=== PATIENT | female | born 1945 | race Caucasian/White ===

== ENCOUNTER 2017-03-04 00:14 | Inpatient (IN) | payer OTHER ==
[2017-03-04] VITALS (85 sets, daily range): BP systolic 74–153; BP diastolic 44–123
[~2017-03-04] VITALS: Ht 167.6 cm; Wt 67.7 kg
--- NOTE | ~2017-03-04 | HC ---
[facility] [place] [address] CONSULTATION Name: TALON BLAKE Room #: [facility] IN ..#: [id number] Admission: 03/04/17 Attend Phys: Joanne Alcazar Discharge: Date of : 49 Report #: [id number] THIS REPORT FOR: //name// CC: [facility] physician/PCP Joanne Alcazar DATE OF SERVICE: 03/06/2017 INDICATION: Troponin elevation. HISTORY OF PRESENT ILLNESS: This is a 71-year-old female with a history of COPD on home oxygen, presenting with increasing dyspnea. The patient is presently intubated and sedated and the history is obtained from her medical records. It seems that she had increasing shortness of breath for several days prior to her hospitalization. There was a history of cough with phlegm production. There was no apparent history of chest pains, fever or nausea. In the ER, she was in respiratory distress requiring intubation. We are asked to evaluate the patient for a peak troponin elevation of 0.60. The patient does not have a prior history of coronary artery disease. The ECG is abnormal. PAST MEDICAL HISTORY: COPD on home oxygen, tobacco use. MEDICATIONS: Please see the MAR for full listing. ALLERGIES: None. SOCIAL HISTORY: Positive tobacco use. FAMILY HISTORY: Unobtainable. REVIEW OF SYSTEMS: Unobtainable. PHYSICAL EXAMINATION: VITAL SIGNS: Blood pressure 110/60, heart rate is 70 beats per minute. GENERAL APPEARANCE: This is an elderly-appearing female, intubated and sedated. HEENT: Head AND EYES: Normocephalic. Sclerae are anicteric. ENT: ET tube in place. NECK: No JVD. LUNGS: Diminished breath sounds at the bases. CARDIAC: Distant heart sounds, S1, S2 positive. ABDOMEN: Soft, nontender. EXTREMITIES: No cyanosis. Trace edema. ECG reveals sinus rhythm, T-wave inversions in the precordial leads. LABORATORY VALUES: Sodium is 140, creatinine is 0.5. White count 11.1, [facility] [address] [place] [address] CONSULTATION Name: TALON BLAKE Room #: [facility] IN [facility].#: [id number] Admission: 03/04/17 Attend Phys: Joanne Alcazar Discharge: Date of : 49 Report #: [id number] hemoglobin 11.0. Peak troponin is 0.60. ASSESSMENT AND PLAN: 1. Respiratory failure, most likely attributed to chronic obstructive pulmonary disease exacerbation/pneumonia. Continue on vent as per Pulmonary. Check cultures and continue with antibiotics. 2. Troponin elevation, peak level of 0.60. The significance is unclear. Maybe related to oxygen/hypoxia mismatch. We will need an ischemic evaluation once her respiratory status has been stabilized. Continue with aspirin therapy. 3. Abnormal ECG, T-wave inversions in the precordial leads. She will need an echo to assess the LV systolic function. 4. Tobacco use, complete smoking cessation is recommended. <ELECTRONICALLY SIGNED> By: Karan Orosco MD 03/06/17 1411 0819 0905 Karan Orosco MD /nt
--- NOTE | ~2017-03-04 | HC ---
[facility] [place] [address] CONSULTATION Name: TALON BLAKE Room #: 243-P [facility] IN ..#: [id number] Admission: 03/04/17 Attend Phys: Joanne Alcazar Discharge: Date of : 49 Report #: [id number] THIS REPORT FOR: //name// CC: FAM physician/PCP Joanne Alcazar DATE OF SERVICE: 03/04/2017 PRIMARY CARE PHYSICIAN: Dr. Terra Modi. REFERRAL PHYSICIAN: Dr. Alcazar. REASON FOR REFERRAL: Acute respiratory failure. HISTORY OF PRESENT ILLNESS: The patient is a 71-year-old white female who presents to the Emergency Room with acute respiratory distress. She was eventually placed on a ventilator. A pulmonary consultation was requested. The patient has known chronic lung disease. She was previously hospitalized in 07/2014 for chronic obstructive pulmonary disease exacerbation. She is followed longitudinally by Dr. Harjinder Thomas. She is oxygen dependent. She is felt to have severe pulmonary impairment. The patient was doing fairly well until 2 days prior to presentation when she began to feel ill, complained of myalgias, febrile illness, cough productive of yellowish sputum. Chest x-ray shows relatively clear lung pineda. PAST MEDICAL HISTORY: Notable for chronic obstructive pulmonary disease, oxygen dependent; history of tobacco use, past history of myocardial infarction. PAST SURGICAL HISTORY: Status post hysterectomy. ALLERGIES: None to medications. HOME MEDICATIONS: Advair 115/21 mcg 2 puffs twice a day, alprazolam 0.25 mg, nebulized ipratropium, guaifenesin, Xopenex nebulized, Anoro Ellipta. FAMILY HISTORY: Noncontributory. SOCIAL HISTORY: The patient has smoked, but quit several years ago. There is no history of use. REVIEW OF SYSTEMS: Deferred as the patient is intubated. PHYSICAL EXAMINATION: GENERAL: She is sedated. [facility] [address] [place] [address] CONSULTATION Name: TALON BLAKE Room #: 243-P [facility] IN [facility]#: [id number] Admission: 03/04/17 Attend Phys: Joanne Alcazar Discharge: Date of : 49 Report #: [id number] VITAL SIGNS: Temperature is 97.6 degrees Fahrenheit, pulse is 120, respiratory rate is 40, blood pressure is 90/67 mmHg, saturation is 95%. HEENT: Normocephalic, atraumatic. She is orally intubated. NECK: Supple, without lymphadenopathy or thyromegaly. CHEST: Breath sounds are fair with moderate expiratory wheezes. Few scattered crackles are heard in both lung pineda. CARDIOVASCULAR: Normal S1, S2. There are no murmurs or gallop. There is no JVD. There is no carotid bruit. Pulses are 2+/4+ bilaterally. BREASTS: Exam deferred. ABDOMEN: Soft, nontender, no organomegaly or masses felt. GENITOURINARY: Deferred. RECTAL: Deferred. EXTREMITIES: There is no edema, cyanosis or clubbing. LABORATORY DATA: Chest x-ray again shows no obvious infiltrates. ET tube is approximately 2.5 cm above the rebeca. EKG shows T-wave abnormalities, otherwise no acute ST elevations. Lactic acid is 2.2. Electrolytes are normal. Sodium 145, potassium 3.6, chloride 102, CO2 is 35, BUN is 22, creatinine 0.8. WBC 13,500, hemoglobin is 14.6, platelets are normal. No significant bandemia. Troponin is 0.6. Arterial blood gas revealed pH 7.11, pCO2 of 106, pO2 of 286 on FiO2 100%. Followup arterial blood gas is pending. IMPRESSION: 1. Acute on chronic hypercapnic hypoxic respiratory failure in this 71-year-old white female secondary to exacerbation of chronic obstructive pulmonary disease. Possible lower respiratory tract infection should be considered. 2. Chronic obstructive pulmonary disease, severity unknown, oxygen dependent with exacerbation. 3. Elevated troponin, likely due to stress myocardial demand. Follow up EKG. Follow up troponin. May need cardiac evaluation once stable. RECOMMENDATION: We will continue mechanical ventilation. Continue broad spectrum antibiotics, corticosteroids, bronchodilators. DVT and GI prophylaxis will be obtained. I recommend following serial troponins and EKGs. Thank you for this consultation. <ELECTRONICALLY SIGNED> By: Rajeev Childers MD 03/05/17 1600 1415 1655 Rajeev Childers MD /nt
--- NOTE | ~2017-03-04 | EKG ---
[address] [place] [address] ELECTROCARDIOGRAM REPORT Name: TALON BLAKE Room #: 243- ADM IN M.R.#: [id number] Admission: 03/04/17 Attend Phys: Joanne Alcazar Discharge: Date of : 49 Report #: [id number] THIS REPORT FOR: //name// [place] [facility] Test Date: 2017-03-04 Test Time: 14:41:11 Pat Name: TALON BLAKE Department: Room: 243 Gender: F Antisubmarine Weapons Officer: ANSHUL : 1945 Requested By: Rajeev Childers Order Number: [id number] MD: Karan Orosco Measurements Intervals [place] Rate: 72 P: 78 NE: 141 QRS: 26 QRSD: 100 T: -11 QT: 472 QTc: 517 Interpretive Statements Sinus rhythm Abnormal T, consider ischemia, anterior leads Prolonged QT interval Compared to ECG 03/04/2017 01:14:47 No change Electronically Signed On 03-05-2017 9:46:30 STRATEGIC MARKETING MANAGER by Karan Orosco [email or web address] <ELECTRONICALLY SIGNED> By: Karan Orosco MD 03/05/17 0946 1441 1441 Karan Orosco MD /OCTAVIANO
--- NOTE | ~2017-03-04 | 2DMMODE ---
[facility] [address] [place] [address] 2 D/M-MODE ECHOCARDIOGRAM Name: LOUTALON Kar Room #: 243-P [facility] IN ..#: [id number] Admission: 03/04/17 Attend Phys: Joanne Parra Discharge: Date of : 49 Date of Service: 03/07/17 [facility] Report #: [id number] THIS REPORT FOR: //name// APPROVED REPORT Study performed: 03/07/2017 08:24:09 EXAM: Comprehensive 2D, Doppler, and color-flow Echocardiogram Patient Location: ICU Room #: [facility] Status: routine BSA: 1.71 BP: 105/57 mmHg Other Information Study Quality: Technically Difficult Technically limited study due to lung disease, inability to position patient. Indications COPD Non STEMI Dyspnea 2D Dimensions RVDd: 25.38 mm LVEF(%): 58.44 (>50%) IVSd: 11.16 (7-11mm) LVOT Diam: 17.26 (18-24mm) LVDd: 35.07 mm PWd: 9.83 (7-11mm) LVDs: 24.51 (25-40mm) Aortic Root: 32.07 mm IVC: 21.00 mm Gurrola's LVEF: 58.44 % Volumes Left Atrial Volume (Systole) Single Plane 4CH: 20.29 mL Single Plane 2CH: 41.50 mL LA ESV Index: 20.00 mL/m2 Aortic Valve AoV Peak Deven.: 2.46 m/s AO Peak Gr.: 24.25 mmHg LVOT Max P.04 mmHg AO Mean Gr.: 10.08 mmHg LVOT Mean P.60 mmHg AO V2 Mean: 1.42 m/s LVOT Max V: 1.23 m/s AO V2 VTI: 43.61 cm LVOT Mean V: 0.72 m/s [facility] [place] [address] 2 D/M-MODE ECHOCARDIOGRAM Name: TALON BLAKE Room #: 243-P [facility] IN ..#: [id number] Admission: 03/04/17 Attend Phys: Joanne Parra Discharge: Date of : 49 Date of Service: 03/07/17 [facility] Report #: [id number] NIRAJ (VTI): 1.33 cm2 LVOT V1 VTI: 24.79 cm NIRAJ Vmax: 1.17 cm2 SV (LVOT): 57.96 mL Mitral Valve E/A Ratio: 1.7 MV Decel. Time: 255.61 ms MV E Max Deven.: 0.91 m/s MV A Deven.: 0.53 m/s MV PHT: 74.13 ms IVRT: 89.97 ms Pulmonary Valve PV Peak Deven.: 1.07 m/s PV Peak Gr.: 4.60 mmHg Pulmonary Vein P Vein S: 0.70 m/s P Vein A: 0.26 m/s P Vein D: 0.58 m/s P Vein A Dur.: 83.0 msec P Vein S/D Ratio: 1.21 Tricuspid Valve RAP Estimate: 10.00 mmHg Left Ventricle The left ventricle is normal size. There is normal left ventricular wall thickness. The left ventricular systolic function is normal. The left ventricular ejection fraction is within the normal range. LVEF is 60-65%. Transmitral Doppler flow pattern suggests pseudonormalization. Right Ventricle The right ventricle is normal size. The right ventricular systolic function is normal. Atria The left atrium size is normal. The right atrium size is normal. Aortic Valve Aortic valve leaflets are thickened. No aortic regurgitation is present. There is mild valvular aortic stenosis. Maximum pressure gradient of 24 mmHg and mean pressure gradient of 10 mmHg. Mitral Valve The mitral valve is normal in structure. Trace mitral regurgitation. No evidence of mitral valve stenosis. [facility] [address] [place] [address] 2 D/M-MODE ECHOCARDIOGRAM Name: TALON BLAKE Room #: 243-P [facility] IN [facility]#: [id number] Admission: 03/04/17 Attend Phys: Joanne Parra Discharge: Date of : 49 Date of Service: 03/07/17 [facility] Report #: [id number] Tricuspid Valve The tricuspid valve is normal in structure. Trace tricuspid regurgitation. Unable to assess PA pressure. Pulmonic Valve Pulmonic valve is not well visualized. Great Vessels The aortic root is normal in size. IVC measures upper limits of normal. Pericardium There is no pericardial effusion. <Conclusion> The left ventricle is normal size. The left ventricular systolic function is normal. Transmitral Doppler flow pattern suggests pseudonormalization. The right ventricle is normal size. The left atrium size is normal. There is mild valvular aortic stenosis. Trace mitral regurgitation. There is no pericardial effusion. <ELECTRONICALLY SIGNED> By: Karan Orosco MD 03/07/17 1037 1037 1037 Karan Orosco MD /INF
--- NOTE | ~2017-03-04 | EKG ---
[address] [place] [address] ELECTROCARDIOGRAM REPORT Name: TALON BLAKE Room #: 243-P ADM IN M.R.#: [id number] Admission: 03/04/17 Attend Phys: Joanne Alcazar Discharge: Date of : 49 Report #: [id number] THIS REPORT FOR: //name// [facility] Test Date: 2017-03-04 Test Time: 01:14:47 Pat Name: TALON BLAKE Department: Room: 243 Gender: F Extrusion Press Supervisor: RAFA : 1945 Requested By: Jada Dave Order Number: [id number] MD: Karan Orosco Measurements Intervals Exchange Rate: 96 P: 79 NV: 155 QRS: -2 QRSD: 96 T: 112 QT: 316 QTc: 400 Interpretive Statements Sinus rhythm Atrial premature complex Right atrial enlargement Abnormal T, consider ischemia, anterior leads Compared to ECG 07/26/2014 09:45:27 Atrial premature complex(es) now present T-wave abnormality now present Electronically Signed On 03-04-2017 12:31:02 VIDEO POKER FLOORMAN by Karan Orosco [email or web address] <ELECTRONICALLY SIGNED> By: Karan Orosco MD 03/04/17 1231 0114 3 Karan Orosco MD /EPI
--- NOTE | ~2017-03-04 | HC ---
[facility] [address] CONSULTATION Name: TALON BLAKE Kar Room #: 358-P [facility]#: [id number] Admission: 03/04/17 Attend Phys: Joanne Alcazar Discharge: 03/15/17 Date of : 49 Report #: [id number] THIS REPORT FOR: //name// CC: [facility] physician/PCP Joanne Alcazar DATE OF SERVICE: 03/14/2017 HISTORY OF PRESENT ILLNESS: The patient is a 71-year-old white female with a history of COPD, tobacco abuse, and premorbid O2 dependency, apparently on 2.5 liters premorbidly. She was admitted with increased shortness of air and noted to have acute on chronic respiratory failure. She was intubated, noted to have a non-ST elevation [place]. She is noted to have influenza A and a COPD exacerbation. Her course has been complicated by paroxysmal atrial tachycardia. She remained intubated from her admission and per chart notes she was extubated on 03/10/2017. She is very weak and debilitated and has significant muscular weakness after her prolonged extubation. She has now been transferred out of the ICU and we are seeing her in rehabilitation medicine consultation. PAST MEDICAL HISTORY: Includes history of COPD, bronchitis, tobacco abuse. PAST SURGICAL HISTORY: Includes hysterectomy. ALLERGIES: No known drug allergies. FAMILY HISTORY: Positive for diabetes. The patient denies any diabetes herself. HABITS: Former tobacco abuse, quit greater than a year ago. No history of alcohol abuse. SOCIAL HISTORY: Lives in a house, 2.5 liters premorbidly, used a front-wheeled walker for short distances, noted that there are always someone with her. REVIEW OF SYSTEMS: Indicates she has had a long history of weakness of her hands and of her feet. It sounds like she tended to drag her feet with the weakness of her distal lower extremities. Denies that she has ever had this weakness worked up or evaluated. Denies any current chest pain or abdominal discomfort. Notes that she is short of breath with limited activity. Has generalized weakness. No focal extremity pain complaints. Did not offer any complaints of bowel or bladder changes. PHYSICAL EXAMINATION: GENERAL: A 71-year-old thin white female appeared older than stated age. She is currently on nasal prong O2. NEUROLOGIC: She is using some pursed lip breathing with breathing through her mouth while at rest. Facies appeared to be symmetric. She can speak in short words sentences with [facility] [address] [place] [address] CONSULTATION Name: TALON BLAKE Room #: 358-P [facility] IN ..#: [id number] Admission: 03/04/17 Attend Phys: Joanne Alcazar Discharge: 03/15/17 Date of : 49 Report #: [id number] her respiratory issues. EXTREMITIES: Functional range of motion of both upper extremities. She has evidence of significant wasting of the intrinsics of her hands and does have weakness with inability to oppose her thumb and intrinsic weakness of her fingers bilaterally. Proximal strength is more of a grade 3+/5. Her lower extremities, she also has weakness distally appeared little more left lower extremity than right lower extremity. Appeared to have some weakness with dorsiflexion as well, probably at least a grade 3+. Proximally, her strength is a grade 3 to 3+. DTRs are decreased. As far as her function, she is max assist with bed mobility, max assist with basic transfers. She has not been able to ambulate. OT is evaluating. ASSESSMENT: A 71-year-old white female with the following problem list: 1. Critical illness myopathy. 2. Acute on chronic respiratory failure with ventilator dependency, now extubated. 3. Non-ST elevation myocardial infarction. 4. Chronic obstructive pulmonary disease exacerbation. 5. Influenza A. 6. Paroxysmal atrial tachycardia. 7. Apparent premorbid peripheral neuropathy with significant thenar and intrinsic atrophy and distal lower extremity weakness as well. She may need further workup for this as an outpatient including possibly EMG/nerve conduction velocities. RECOMMENDATIONS: We are assessing if she has the tolerance for an acute in-hospital inpatient rehabilitation stay. She certainly may be a candidate for the rehab galan and at this point, we will continue to follow along with you. <ELECTRONICALLY SIGNED> By: Rodrigo Liu MD 03/21/17 1003 1135 1602 Rodrigo Liu MD /[facility]
[~2017-03-04 00:14] MED LIST: ADVAIR HFA115 MCG/21 INH; ASPIRIN81 M2 PO; BENADRYL25 MG PO; ENOXAPARIN40 MG/0.1 SUBQ; IPRATROPIUM BROMIDE INH; IPRATROPIUM INH; LEVAQUIN 500 M500 M2 PO; LEVAQUIN 500 M500 MG PO; MUCINEX TA600 MG/TA2 PO; MULTIVITAMINS1 EAC7 PO; PREDNISONE10 MG; TYLENOL325 MG PO; VITAMIN D1000 UNI1 PO; VITAMIN E400 UNIT PO; XANAX 0.25 MG0.25 MG PO; XOPENEX0.63 MG/3 INH
[2017-03-04] MEDS ORDERED: ANORO ELLIPTA1 EACH ×2 (00:23)
[2017-03-04 00:45] LABS: ABSOLUTE NEUTROPHILS 10.2 thou/uL (1.4-8.2); BASOPHILS 0.2 % (0.0-2.0); HEMATOCRIT 44.8 % (37.0-47.0); HEMOGLOBIN 14.6 gm/dL (12.0-15.0); LYMPHOCYTES 13.3 % (24.0-44.0); MCHC 32.6 g/dL (28.0-37.0); MCV 85.9 fL (80.0-100.0); MONOCYTES 10.9 % (1.0-8.0); PLATELET COUNT 215 thou/uL (150-400); POLYS 75.6 % (36.0-66.0); RBC 5.22 mil/uL (4.20-5.00); RDW 14.1 % (10.5-14.5); WBC 13.5 thou/uL (4.0-11.0)
[2017-03-04 00:53] LABS: CALCIUM 9.2 mg/dL (8.5-10.1); CREATININE 0.8 mg/dL (0.6-1.0); POTASSIUM 3.6 mmol/L (3.5-5.1)
[2017-03-04 01:37] LABS: BE(vivo) 7.3 mmol/L (-2 to +3); HCO3 34.1 mmol/L (22.0-26.0); PCO2 56.6 mmHg (35.0-45.0); PO2 137.4 mmHg (80.0-100.0); pH 7.398 (7.360-7.450); sO2 98.7 % (92.0-98.0)
[2017-03-04 03:44] LABS: BE(vivo) 0.2 mmol/L (-2 to +3); HCO3 33.4 mmol/L (22.0-26.0); PO2 286.1 mmHg (80.0-100.0); pH 7.116 (7.360-7.450); sO2 99.4 % (92.0-98.0)
[2017-03-04 04:30] LABS: URINE BLOOD NEGATIVE (Negative); URINE CLARITY CLOUDY; URINE COLOR BROWN; URINE GLUCOSE-RANDOM* NEGATIVE (Negative); URINE KETONES TRACE (Negative); URINE LEUKOCYTES NEGATIVE (Negative); URINE NITRITE NEGATIVE (Negative); URINE PROTEIN (DIPSTICK) 1+ (Negative); URINE SPECIFIC GRAVITY 1.025 (1.005-1.035)
[2017-03-04 04:32] LABS: ICTOTEST (BILI CONFIRMATORY) Negative (Negative); URINE BILIRUBIN NEGATIVE (Negative)
[2017-03-04 04:45] LABS: HYALINE CASTS 4-10 Moderate /LPF (None Seen); MUCUS >6 Heavy strn/LPF (None Seen); SQUAMOUS 4-10 Moderate /LPF (0-3)
[2017-03-04 04:46] LABS: URINE WBC 0-5 Rare /HPF (0-5)
[2017-03-04 04:47] LABS: BACTERIA 1-9 Few /HPF (None Seen); CRYSTALS None Seen /LPF (None Seen); URINE RBC 0-2 Rare /HPF (0-2)
[2017-03-04 05:07] LABS: HCO3 28.7 mmol/L (22.0-26.0); PCO2 53.7 mmHg (35.0-45.0); pH 7.346 (7.360-7.450)
[2017-03-05] VITALS (42 sets, daily range): BP systolic 95–130; BP diastolic 49–91
[2017-03-05 05:41] LABS: HEMATOCRIT 36.1 % (37.0-47.0); MCH 27.8 pg (26.0-34.0); MCV 86.9 fL (80.0-100.0); RBC 4.16 mil/uL (4.20-5.00); RDW 13.9 % (10.5-14.5); WBC 10.6 thou/uL (4.0-11.0)
[2017-03-05 05:55] LABS: HEMOGLOBIN 11.6 gm/dL (12.0-15.0)
[2017-03-05 06:00] LABS: CALCIUM 8.2 mg/dL (8.5-10.1); CREATININE 0.6 mg/dL (0.6-1.0); TROPONIN-I 0.19 ng/mL (<0.06)
[2017-03-06] VITALS (37 sets, daily range): BP systolic 86–128; BP diastolic 50–78
[2017-03-06 05:22] LABS: HEMATOCRIT 34.2 % (37.0-47.0); MCH 27.7 pg (26.0-34.0); MCHC 32.1 g/dL (28.0-37.0); MCV 86.3 fL (80.0-100.0); RBC 3.96 mil/uL (4.20-5.00); RDW 13.8 % (10.5-14.5); WBC 11.1 thou/uL (4.0-11.0)
[2017-03-06 05:27] LABS: BE(vivo) 5.1 mmol/L (-2 to +3); HCO3 32.2 mmol/L (22.0-26.0); PCO2 59.5 mmHg (35.0-45.0); PO2 107.3 mmHg (80.0-100.0); pH 7.351 (7.360-7.450); sO2 97.6 % (92.0-98.0)
[2017-03-06 05:31] LABS: CALCIUM 8.2 mg/dL (8.5-10.1); CREATININE 0.5 mg/dL (0.6-1.0); POTASSIUM 3.9 mmol/L (3.5-5.1)
[2017-03-07] VITALS (24 sets, daily range): BP systolic 90–124; BP diastolic 53–77
[2017-03-07 05:04] LABS: HEMATOCRIT 34.7 % (37.0-47.0); HEMOGLOBIN 11.2 gm/dL (12.0-15.0); MCH 27.6 pg (26.0-34.0); MCHC 32.2 g/dL (28.0-37.0); MCV 85.7 fL (80.0-100.0); RBC 4.05 mil/uL (4.20-5.00); RDW 13.8 % (10.5-14.5)
[2017-03-07 05:09] LABS: CALCIUM 8.4 mg/dL (8.5-10.1); CREATININE 0.6 mg/dL (0.6-1.0); POTASSIUM 4.5 mmol/L (3.5-5.1)
[2017-03-08] VITALS (24 sets, daily range): BP systolic 92–138; BP diastolic 51–86
[2017-03-08 04:58] LABS: HEMATOCRIT 33.4 % (37.0-47.0); HEMOGLOBIN 10.9 gm/dL (12.0-15.0); MCHC 32.6 g/dL (28.0-37.0); MCV 85.7 fL (80.0-100.0); RBC 3.89 mil/uL (4.20-5.00); WBC 8.7 thou/uL (4.0-11.0)
[2017-03-08 05:06] LABS: CALCIUM 8.4 mg/dL (8.5-10.1); CREATININE 0.4 mg/dL (0.6-1.0); POTASSIUM 4.9 mmol/L (3.5-5.1)
[2017-03-09] VITALS (23 sets, daily range): BP systolic 80–129; BP diastolic 50–84
[2017-03-09 00:06] LABS: ADENOVIRUS Negative (Negative); INFLUENZA A Positive (Negative); INFLUENZA B Negative (Negative); METAPNEUMOVIRUS Negative (Negative); PARAINFLUENZA 1 Negative (Negative); PARAINFLUENZA 2 Negative (Negative); PARAINFLUENZA 3 Negative (Negative); RHINOVIRUS Negative (Negative); RSV A Negative (Negative); RSV B Negative (Negative)
[2017-03-09 05:32] LABS: HEMATOCRIT 29.9 % (37.0-47.0); HEMOGLOBIN 9.7 gm/dL (12.0-15.0); MCH 27.9 pg (26.0-34.0); MCHC 32.6 g/dL (28.0-37.0); MCV 85.6 fL (80.0-100.0); PLATELET COUNT 201 thou/uL (150-400); RBC 3.49 mil/uL (4.20-5.00); WBC 11.6 thou/uL (4.0-11.0)
[2017-03-09 05:37] LABS: ANION GAP < 0 mmol/L (7-16); BUN 36 mg/dL (7-18); CALCIUM 8.4 mg/dL (8.5-10.1); CHLORIDE 103 mmol/L (98-107); CO2 43 mmol/L (21-32); CREATININE 0.5 mg/dL (0.6-1.0); GLUCOSE 166 mg/dL (74-106); POTASSIUM 4.6 mmol/L (3.5-5.1); SODIUM 143 mmol/L (136-145)
[2017-03-09 06:33] LABS: ABSOLUTE NEUTROPHILS 10.7 thou/uL (1.4-8.2); LARGE PLATELETS FEW; METAMYELOCYTES 1 %
[2017-03-09 21:57] LABS: URINE BILIRUBIN NEGATIVE (Negative); URINE BLOOD 3+ (Negative); URINE CLARITY CLEAR; URINE COLOR YELLOW; URINE GLUCOSE-RANDOM* NEGATIVE (Negative); URINE KETONES NEGATIVE (Negative); URINE LEUKOCYTES-REFLEX NEGATIVE (Negative); URINE NITRITE-REFLEX NEGATIVE (Negative); URINE PROTEIN (DIPSTICK) NEGATIVE (Negative); URINE SPECIFIC GRAVITY 1.025 (1.005-1.035); URINE UROBILINOGEN 0.2 E.U./dl (0.2-1.0)
[2017-03-09 22:37] LABS: BACTERIA-REFLEX None Seen /HPF (None Seen); MUCUS 0-3 Light strn/LPF (None Seen); SQUAMOUS 0-3 Few /LPF (0-3); URINE RBC >20 Many /HPF (0-2); URINE WBC-REFLEX 0-5 Rare /HPF (0-5)
[2017-03-09 22:38] LABS: CRYSTALS None Seen /LPF (None Seen); HYALINE CASTS 0-3 Few /LPF (None Seen); URIC ACID CRYSTALS >10 Many /LPF (None Seen)
[2017-03-10] VITALS (24 sets, daily range): BP systolic 93–130; BP diastolic 51–79
[2017-03-10 05:36] LABS: BE(vivo) 12.9 mmol/L (-2 to +3); PCO2 60.2 mmHg (35.0-45.0); PO2 103.8 mmHg (80.0-100.0); pH 7.429 (7.360-7.450); sO2 97.7 % (92.0-98.0)
[2017-03-10 05:39] LABS: CALCIUM 8.5 mg/dL (8.5-10.1); CREATININE 0.5 mg/dL (0.6-1.0); MAGNESIUM 2.2 mg/dL (1.8-2.4); POTASSIUM 4.5 mmol/L (3.5-5.1)
[2017-03-10 05:42] LABS: HEMATOCRIT 26.3 % (37.0-47.0); HEMOGLOBIN 8.6 gm/dL (12.0-15.0); MCH 27.9 pg (26.0-34.0); MCHC 32.7 g/dL (28.0-37.0); MCV 85.4 fL (80.0-100.0); RBC 3.08 mil/uL (4.20-5.00); RDW 13.8 % (10.5-14.5); WBC 15.1 thou/uL (4.0-11.0)
[2017-03-10 09:33] LABS: BE(vivo) 9.8 mmol/L (-2 to +3); HCO3 35.2 mmol/L (22.0-26.0); PCO2 52.7 mmHg (35.0-45.0); PO2 92.2 mmHg (80.0-100.0); pH 7.443 (7.360-7.450); sO2 97.2 % (92.0-98.0)
[2017-03-11] VITALS (24 sets, daily range): BP systolic 86–141; BP diastolic 48–82
[2017-03-11 05:50] LABS: HEMATOCRIT 24.1 % (37.0-47.0); MCH 28.3 pg (26.0-34.0); MCHC 33.2 g/dL (28.0-37.0); MCV 85.3 fL (80.0-100.0); RBC 2.82 mil/uL (4.20-5.00); RDW 13.9 % (10.5-14.5); WBC 11.1 thou/uL (4.0-11.0)
[2017-03-11 06:06] LABS: ANION GAP < 0 mmol/L (7-16); BUN 37 mg/dL (7-18); CALCIUM 8.1 mg/dL (8.5-10.1); CHLORIDE 104 mmol/L (98-107); CO2 43 mmol/L (21-32); CREATININE 0.4 mg/dL (0.6-1.0); GLUCOSE 137 mg/dL (74-106); POTASSIUM 4.5 mmol/L (3.5-5.1); SODIUM 143 mmol/L (136-145)
[2017-03-12] VITALS (18 sets, daily range): BP systolic 82–126; BP diastolic 51–104
[2017-03-12 05:01] LABS: HEMATOCRIT 22.7 % (37.0-47.0); HEMOGLOBIN 7.3 gm/dL (12.0-15.0); MCH 28.1 pg (26.0-34.0); MCHC 32.3 g/dL (28.0-37.0); MCV 87.2 fL (80.0-100.0); PLATELET COUNT 188 thou/uL (150-400); WBC 9.6 thou/uL (4.0-11.0)
[2017-03-12 05:10] LABS: ANION GAP < 0 mmol/L (7-16); BUN 34 mg/dL (7-18); CALCIUM 8.1 mg/dL (8.5-10.1); CHLORIDE 102 mmol/L (98-107); CO2 42 mmol/L (21-32); CREATININE 0.3 mg/dL (0.6-1.0); GLUCOSE 130 mg/dL (74-106); POTASSIUM 4.4 mmol/L (3.5-5.1); SODIUM 143 mmol/L (136-145)
[2017-03-12 11:18] LABS: ABSOLUTE NEUTROPHILS 7.8 thou/uL (1.4-8.2); ANISOCYTOSIS SLIGHT; METAMYELOCYTES 2 %; POLYCHROMASIA OCCASIONAL
[2017-03-13 00:05] VITALS: BP 124/71
[2017-03-13 01:09] LABS: HEMATOCRIT 24.5 % (37.0-47.0); HEMOGLOBIN 8.1 gm/dL (12.0-15.0); MCH 28.6 pg (26.0-34.0); MCHC 32.8 g/dL (28.0-37.0); MCV 87.1 fL (80.0-100.0); PLATELET COUNT 208 thou/uL (150-400); RBC 2.82 mil/uL (4.20-5.00); RDW 14.4 % (10.5-14.5); WBC 13.7 thou/uL (4.0-11.0)
[2017-03-13 01:14] LABS: BE(vivo) 17.3 mmol/L (-2 to +3); HCO3 43.8 mmol/L (22.0-26.0); PO2 113.1 mmHg (80.0-100.0); pH 7.429 (7.360-7.450); sO2 98.1 % (92.0-98.0)
[2017-03-13 01:15] LABS: ANION GAP < 0 mmol/L (7-16); BUN 36 mg/dL (7-18); CHLORIDE 103 mmol/L (98-107); CO2 41 mmol/L (21-32); CREATININE 0.3 mg/dL (0.6-1.0); GLUCOSE 112 mg/dL (74-106); PCO2 67.6 mmHg (35.0-45.0); POTASSIUM 4.3 mmol/L (3.5-5.1); SODIUM 143 mmol/L (136-145)
[2017-03-13 01:31] LABS: ABSOLUTE NEUTROPHILS 12.2 thou/uL (1.4-8.2)
[2017-03-13 04:20] VITALS: BP 110/63
[2017-03-13 08:55] VITALS: BP 118/68
[2017-03-13 13:55] VITALS: BP 123/79
[2017-03-13 15:45] VITALS: BP 130/86
[2017-03-13 17:10] LABS: BE(vivo) 14.3 mmol/L (-2 to +3); HCO3 40.3 mmol/L (22.0-26.0); PCO2 60.2 mmHg (35.0-45.0); pH 7.444 (7.360-7.450); sO2 96.5 % (92.0-98.0)
[2017-03-13 19:30] VITALS: BP 127/62
[2017-03-14 04:35] VITALS: BP 118/70
[2017-03-14 12:02] VITALS: BP 124/59
[2017-03-14 15:00] VITALS: BP 126/60
[2017-03-14] MEDS ORDERED: LEVAQUIN 500 M500 M2 PO ×2 (16:09)
[2017-03-14] MEDS ORDERED: ASPIRIN325 PER TUBE ×2 (16:10)
[2017-03-14] MEDS ORDERED: DUONEB 2.5-0.5 M3 ML INH ×2 (16:10)
[2017-03-14] MEDS ORDERED: ALBUTEROL2.5 MG/31 INH ×2 (16:10)
[2017-03-14] MEDS ORDERED: PROTONIX40 M1 PO ×2 (16:11)
[2017-03-14] MEDS ORDERED: PREDNISONE 10 M10 MG PO ×2 (16:13)
[2017-03-14 19:15] VITALS: BP 140/84
[2017-03-15 03:55] VITALS: BP 137/74
[2017-03-15 06:13] LABS: HEMATOCRIT 25.8 % (37.0-47.0); HEMOGLOBIN 8.5 gm/dL (12.0-15.0); MCH 28.5 pg (26.0-34.0); MCHC 33.2 g/dL (28.0-37.0); RDW 14.4 % (10.5-14.5); WBC 14.5 thou/uL (4.0-11.0)
[2017-03-15 06:25] LABS: ANION GAP < 0 mmol/L (7-16); BUN 46 mg/dL (7-18); CALCIUM 8.4 mg/dL (8.5-10.1); CHLORIDE 101 mmol/L (98-107); CO2 43 mmol/L (21-32); CREATININE 0.4 mg/dL (0.6-1.0); GLUCOSE 157 mg/dL (74-106); POTASSIUM 4.2 mmol/L (3.5-5.1); SODIUM 142 mmol/L (136-145)
[2017-03-15 07:48] VITALS: BP 141/74
== END 2017-03-15 10:57 | DRG 870 ==
LOC: ER 00:14 → EROBS 02:11 → ICU 02:11 → 3W 03-12 17:08
PROVIDERS: Emergency Medicine; Family Medicine; Hospitalist; Internal Medicine; Internal Medicine Endocrinology, Diabetes & Metabolism; Internal Medicine Pulmonary Disease; Nurse Practitioner Acute Care; Nurse Practitioner Family
PROC: 0BH17EZ Insertion of Endotracheal Airway into Trachea, Via Natural or Artificial Opening (ICD-10-PCS; principal; 2017-03-04)
PROC: 5A1955Z Respiratory Ventilation, Greater than 96 Consecutive Hours (ICD-10-PCS; principal; 2017-03-04)
PROC: 05HB33Z Insertion of Infusion Device into Right Basilic Vein, Percutaneous Approach (ICD-10-PCS; 2017-03-04)
PROC: B54MZZA Ultrasonography of Right Upper Extremity Veins, Guidance (ICD-10-PCS; 2017-03-04)
PROC: 5A09357 Assistance with Respiratory Ventilation, Less than 24 Consecutive Hours, Continuous Positive Airway Pressure (ICD-10-PCS; 2017-03-15)
DX: A41.9 Sepsis, unspecified organism (principal); J96.21 Acute and chronic respiratory failure with hypoxia; I21.4 Non-ST elevation (NSTEMI) myocardial infarction; J96.22 Acute and chronic respiratory failure with hypercapnia; J18.9 Pneumonia, unspecified organism; J44.1 Chronic obstructive pulmonary disease with (acute) exacerbation; G72.81 Critical illness myopathy; I47.1 Supraventricular tachycardia; J44.0 Chronic obstructive pulmonary disease with (acute) lower respiratory infection; J11.1 Influenza due to unidentified influenza virus with other respiratory manifestations; D64.9 Anemia, unspecified; F17.200 Nicotine dependence, unspecified, uncomplicated; Z90.710 Acquired absence of both cervix and uterus; Z71.6 Tobacco abuse counseling; Z79.899 Other long term (current) drug therapy; Z83.3 Family history of diabetes mellitus
CPT/HCPCS: 10078; 10779; 27000

== ENCOUNTER 2017-03-15 10:21 | Inpatient (IN) | payer OTHER ==
[~2017-03-15] VITALS: Ht 165.1 cm; Wt 64.2 kg
--- NOTE | ~2017-03-15 | D ---
[facility] [place] [address] DISCHARGE SUMMARY Name: TALON BLAKE Room #: 515-P [facility]#: [id number] Admission: 03/15/17 Attend Phys: Rodrigo Liu MD Discharge: 03/16/17 Date of : 49 Report #: [id number] THIS REPORT FOR: //name// CC: Rodrigo Liu [facility] physician/PCP DATE OF SERVICE: 03/16/2017 HISTORY OF PRESENT ILLNESS: The patient was just admitted yesterday to the acute inpatient rehab galan with critical illness of myopathy, premorbid Kijkloa-Hdoxr-Pypna disease, gaehh-yy-oohaaop respiratory failure, non-ST elevation [place], and COPD exacerbation. She had been improving, was tolerating her therapies, was felt to be ready for an acute in-hospital inpatient rehabilitation stay. Please see my full admission note dictation from yesterday. HOSPITAL COURSE: Last night, the patient began complaining of increased shortness of breath. She was given Lasix IV one dose. With her worsening symptoms, she was subsequently transferred to the Critical Care Unit for further monitoring and treatment. ASSESSMENT: 1. Critical illness myopathy. 2. Premorbid Znocgjr-Nazvx-Aparw disease with considerable distal atrophy and weakness of both lower extremities as well as upper extremities. 3. Acute on chronic respiratory failure. She has had worsening of her shortness of breath and has been transferred off the rehab galan. 4. Recent non-ST elevation myocardial infarction. 5. Recent chronic obstructive pulmonary disease exacerbation. 6. Recent influenza A. PLAN: As above. We will defer medications, activity level, etc. as per the accepting service. <ELECTRONICALLY SIGNED> By: Rodrigo Liu MD 03/20/17 1509 0939 1057 Rodrigo Liu MD /[facility]
--- NOTE | ~2017-03-15 | H ---
[facility] [place] [address] HISTORY AND PHYSICAL Name: TALON BLAKE Room #: 515-P [facility].#: [id number] Admission: 03/15/17 Attend Phys: Rodrigo Liu MD Discharge: 03/16/17 Date of : 49 Report #: [id number] THIS REPORT FOR: //name// CC: Rodrigo Liu [facility] physician/PCP DATE OF SERVICE: 03/15/2017 HISTORY OF PRESENT ILLNESS: This is a 71-year-old white female with history of COPD, tobacco abuse, premorbid O2 dependency was noted to be on 2.5 liters premorbidly. She was originally admitted with increased shortness of breath and noted to have acute on chronic respiratory failure. She was intubated, noted to have a non-ST elevation AR. She was noted to have influenza A and a COPD exacerbation. Her course was complicated by paroxysmal atrial tachycardia. She remained intubated from her admission and her chart notes indicate that she was extubated on 03/10/2017. She was noted to have significant weakness from her critical illness and ICU stay and has critical illness myopathy and medical complexity with generalized debilitation. She has been admitted now for acute in-hospital inpatient rehabilitation. PAST MEDICAL HISTORY: History of COPD, bronchitis, tobacco abuse. PAST SURGICAL HISTORY: Includes hysterectomy. ALLERGIES: No known drug allergies. FAMILY HISTORY: Positive for diabetes. She denies any diabetes herself. HABITS: Former tobacco abuse, quit greater than a year ago. No history of alcohol abuse. SOCIAL HISTORY: Lives in a house, 2.5 liters premorbidly, used a front-wheeled walker for short distances. Noted that they are always someone with her. REVIEW OF SYSTEMS: With further questioning, she noted that she has had significant distal weakness of both upper and lower extremities including bilateral foot drop. She also has considerable hand intrinsic weakness and atrophy. Upon further discussion with her, she notes that she has had a diagnosis of Qktoptt-Qlsow-Bpfyb disease. Has not utilized bracing. She sounded like she tended to drag her feet with the weakness of her distal lower extremities. She did not offer any current complaints of chest pain, abdominal discomfort. She is short of breath with limited activity. No focal extremity pain complaints. No complaints of any headaches. PHYSICAL EXAMINATION: GENERAL: A 71-year-old thin white female, in no obvious [place]. [place] [address] HISTORY AND PHYSICAL Name: TALON BLAKE Room #: 515-P [facility] IN ..#: [id number] Admission: 03/15/17 Attend Phys: Rodrigo Liu MD Discharge: 03/16/17 Date of : 49 Report #: [id number]. VITAL SIGNS: Last recorded temperature 98.5, pulse 95, respirations are 24, blood pressure is 144/79. NEUROLOGIC: The patient is alert. She appears pleasant. HEENT: Appeared to be benign. She is on nasal prong O2. Facies were symmetric. CHEST: Decreased breath sounds throughout. CARDIOVASCULAR: Sounded regular rate and rhythm. ABDOMEN: Bowel sounds positive, nontender. GENITOURINARY AND RECTAL: Deferred. She does have decreased pulmonary reserve and will speak in short sentences. EXTREMITIES: She has functional range of motion of both upper extremities. She has considerable wasting of her thenar and hand intrinsics bilaterally. Proximal strength is more of a grade 3+/5. In her lower extremities, she has bilateral foot drop. Eversion weakness, less than antigravity. Proximally, she is more of a grade 3+/5. DTRs are decreased. She has been needing max assist with basic transfers. ASSESSMENT: A 71-year-old white female with the following problem list: 1. Critical illness myopathy. 2. Premorbid Xahtrfa-Zsnfc-Dxiub disease with considerable distal atrophy and weakness of both lower extremities as well as upper extremities. 3. Acute on chronic respiratory failure with ventilator dependency since extubated. 4. Non-ST elevation myocardial infarction. 5. Chronic obstructive pulmonary disease exacerbation. 6. Influenza A. 7. Paroxysmal atrial tachycardia. PLAN: The patient has been admitted for acute in-hospital inpatient rehabilitation. From a post-admission physician evaluation perspective, there are no relevant changes since the preadmission screening. Please see the above review of prior and current medical and functional conditions and comorbidities. Please see the patient's previous and current functional status. As far as risk of complications, she has the multiple medical comorbidities as noted above. Initial plan of care involves the interdisciplinary acute inpatient rehabilitation program with the goal of maximizing the patient's functional independence, so that she can hopefully return back to her prior living situation. Prognosis is reasonably good with estimated length of stay probably at least 2-3 weeks pending progress. Potential barriers would include the patient's multiple medical comorbidities and decreased functional status. The patient meets diagnostic criteria for an acute in-hospital inpatient rehabilitation stay. She meets medical necessity criteria and we will have the financial planning consultant physicians continue to follow while she is on the rehab galan. She [address] [address] HISTORY AND PHYSICAL Name: TALON BLAKE Room #: 515-P [facility] IN .R.#: [id number] Admission: 03/15/17 Attend Phys: Rodrigo Liu MD Discharge: 03/16/17 Date of : 49 Report #: [id number] does have the tolerance for therapies and has appropriate discharge goals back to the home setting. <ELECTRONICALLY SIGNED> By: Rodrigo Liu MD 03/20/17 1509 1514 1533 Rodrigo Liu MD /[facility]
[~2017-03-15 10:21] MED LIST changes: +ALBUTEROL2.5 MG/31 INH; +ANORO ELLIPTA1 EACH; +ASPIRIN325 PER TUBE; +DUONEB 2.5-0.5 M3 ML INH; +PREDNISONE 10 M10 MG PO; +PROTONIX40 M1 PO
[2017-03-15 11:00] VITALS: BP 144/79
[2017-03-15 20:01] VITALS: BP 128/65
[2017-03-15 23:47] VITALS: BP 108/57
[2017-03-16 04:12] VITALS: BP 102/61
[2017-03-16 04:52] LABS: HEMATOCRIT 24.6 % (37.0-47.0); HEMOGLOBIN 8.1 gm/dL (12.0-15.0); MCH 28.9 pg (26.0-34.0); MCHC 32.7 g/dL (28.0-37.0); MCV 88.2 fL (80.0-100.0); PLATELET COUNT 230 thou/uL (150-400); RBC 2.79 mil/uL (4.20-5.00); RDW 14.6 % (10.5-14.5); WBC 10.7 thou/uL (4.0-11.0)
[2017-03-16 04:57] LABS: BE(vivo) 14.4 mmol/L (-2 to +3); HCO3 40.8 mmol/L (22.0-26.0); PCO2 64.6 mmHg (35.0-45.0); PO2 102.8 mmHg (80.0-100.0); pH 7.418 (7.360-7.450); sO2 97.6 % (92.0-98.0)
[2017-03-16 05:02] LABS: ANION GAP < 0 mmol/L (7-16); BUN 37 mg/dL (7-18); CALCIUM 8.3 mg/dL (8.5-10.1); CHLORIDE 101 mmol/L (98-107); CO2 44 mmol/L (21-32); CREATININE 0.4 mg/dL (0.6-1.0); GLUCOSE 118 mg/dL (74-106); MAGNESIUM 2.1 mg/dL (1.8-2.4); POTASSIUM 3.9 mmol/L (3.5-5.1); SODIUM 143 mmol/L (136-145)
[2017-03-16 11:35] LABS: ANISOCYTOSIS 1+; POLYCHROMASIA OCCASIONAL
== END 2017-03-16 05:11 | DRG 91 ==
PROVIDERS: Internal Medicine Pulmonary Disease; Physical Medicine & Rehabilitation
PROC: 5A09357 Assistance with Respiratory Ventilation, Less than 24 Consecutive Hours, Continuous Positive Airway Pressure (ICD-10-PCS; principal; 2017-03-16)
DX: G72.81 Critical illness myopathy (principal); J96.20 Acute and chronic respiratory failure, unspecified whether with hypoxia or hypercapnia; I47.1 Supraventricular tachycardia; G60.0 Hereditary motor and sensory neuropathy; I48.0 Paroxysmal atrial fibrillation; J44.9 Chronic obstructive pulmonary disease, unspecified; I25.2 Old myocardial infarction; Z90.710 Acquired absence of both cervix and uterus; Z83.3 Family history of diabetes mellitus; Z87.891 Personal history of nicotine dependence
CPT/HCPCS: 10112

== ENCOUNTER 2017-03-16 05:14 | Inpatient (IN) | payer OTHER ==
[2017-03-16] VITALS (36 sets, daily range): BP systolic 93–143; BP diastolic 49–102
[~2017-03-16] VITALS: Ht 167.6 cm; Wt 62.4 kg
--- NOTE | ~2017-03-16 | O ---
[facility] [place] [address] OPERATIVE REPORT Name: TALON BLAKE Room #: 246-P [facility] [place] .#: [id number] Admission: 03/16/17 Attend Phys: Justin Epps MD Discharge: Date of : 49 Report #: [id number] THIS REPORT FOR: //name// CC: [facility] physician/PCP Justin Epps CLINICAL HISTORY: A 71-year-old white female with severe COPD, now with acute respiratory distress, increased upper airway breath sounds suggestive of inability to clear secretions. A diagnostic and therapeutic bronchoscopy was performed. DESCRIPTION OF PROCEDURE: Following obtaining consent and risks and benefits been explained to the patient which include infection, bleeding, pneumothorax, procedure performed in the ICU. The patient was given aerosolized lidocaine at 4%. A 2% lidocaine was given to the upper airways. No sedation was given as the patient is in moderate respiratory distress. A flexible fiberoptic bronchoscope was then introduced through the right naris without difficulty. The epiglottis and vocal cords were normal. Upper trachea was normal. At the mid tracheal level, there appears to be thick whitish secretion seen obstructing the airway to about 60%. Following suctioning and washing, the rest of the airways were examined. The rebeca was normal. Left main stem bronchus, left upper lobe and left lower lobe was normal. Right main stem bronchus, right upper lobe, right middle lobe and right lower lobe was normal. The patient tolerated the procedure well. She remained tachypneic throughout the procedure. Saturation was adequate along with blood pressure. No complications noted. No bleeding noted. IMPRESSION: Thick mucus secretions seen in the mid tracheal area, otherwise no evidence of pneumonia or endobronchial lesions seen. <ELECTRONICALLY SIGNED> By: Rajeev Childers MD 03/16/17 1614 1250 1337 Rajeev Childers MD /nt
--- NOTE | ~2017-03-16 | HC ---
[facility] [place] [address] CONSULTATION Name: TALON BLAKE Room #: 355-[facility]#: [id number] Admission: 03/16/17 Attend Phys: Justin Epps MD Discharge: 03/23/17 Date of : 49 Report #: [id number] THIS REPORT FOR: //name// CC: [facility] physician/PCP Justin Childers MD PALLIATIVE CARE CONSULTATION REQUESTING PHYSICIAN: Dr. Epps and Dr. Childers. CHIEF COMPLAINT: Respiratory failure. HISTORY OF PRESENT ILLNESS: The patient is a 71-year-old female who had initially presented, 03/04/2017, and unfortunately had influenza A and required intubation. She was subsequently extubated, but had significant weakness and decision was made to pursue inpatient rehabilitation on 03/14/2017. Unfortunately, since her discharge, she had had significant difficulty with recurrent COPD exacerbation and recurrent respiratory failure. The patient's lung status has appeared to worsen. It appears that she likely has worsening hypercarbia and it is difficult to see that her prognosis is positive from a rehabilitation standpoint. Today when assessing the patient, she denied current pain. She did report some shortness of breath and she does appear to be in respiratory distress of moderate type. She, additionally, has had some continued coughing. She denies any difficulties with constipation. Denies any difficulties with dysuria at this time. Denies any difficulties with nausea. PAST MEDICAL HISTORY: Significant for COPD, chronic combined respiratory failure, paroxysmal atrial fibrillation and tobacco abuse. PAST SURGICAL HISTORY: Hysterectomy. MEDICATIONS: Levaquin, DuoNebs, prednisone, albuterol, aspirin 325 mg daily, Advair and Protonix. This was on the rehabilitation unit. FAMILY HISTORY: Noncontributory. SOCIAL HISTORY: Long-standing history of tobacco abuse. Daughter is power of squirt machine operator. I spoke with her today with regards to her mother's care. She is currently DNR status. REVIEW OF SYSTEMS: GENERAL: Denies fevers or chills. She is having difficulty with speaking overall, able to complete short sentences only. HEENT: Denies visual changes. Denies sore throat. CARDIOVASCULAR: Denies chest pain. [facility] [address] [place] [address] CONSULTATION Name: TALON BLAKE Room #: 355-P [facility] [id number] Admission: 03/16/17 Attend Phys: Justin Epps MD Discharge: 03/23/17 Date of : 49 Report #: [id number] RESPIRATORY: Does report dyspnea and cough. ABDOMEN: Denies nausea, vomiting, diarrhea or constipation. EXTREMITIES: Denies significant edema. PHYSICAL EXAMINATION: VITAL SIGNS: Pulse was 90 at the time of my interview. She did have hypoxia down to 66% with speaking and was on 1-1/2 liters only, but she would get back easily up to 96% or above after taking deep breaths. GENERAL: Appears to be in respiratory distress, as previously discussed. CARDIOVASCULAR: Regular rate, tachycardic. Otherwise, no significant edema. LUNGS: Diffuse rhonchi noted. ABDOMEN: Soft, nontender to palpation x 4. Positive bowel sounds noted, but diminished. PSYCHIATRIC: Appears to have diminished capacity for understanding of her current medical condition. She had difficulty expressing the extent of her disease at this time and she had some generalized difficulty with attention level. LABORATORY DATA: These include a creatinine of 0.4. NT-proBNP 197. Hemoglobin A1c 8.1. White blood cells 8.6. ASSESSMENT AND PLAN: 1. Evxts-uk-ikgtaya combined respiratory failure. At this time, I attempted to assess the patient's wishes; however, she was not of capacity for decision making. I did discuss with Sara Lantigua, her daughter, her current medical condition. We made the decision for a meeting at approximately 09:00 tomorrow morning to discuss further medical care. I did discuss the possibility of hospice with the patient and they would like to discuss further at this meeting. She is currently a DNR status and we will continue this as per both daughter and the patient. Did discuss the poor prognosis with regards to rehabilitation. Did discuss that may be difficult to get for rehabilitation with her current lung status and hypercarbia in particular. She is very tenuous as far as her respiratory status at this time. Spent 30 min in voluntary advanced care discusssion as above. 2. Chronic obstructive pulmonary disease with acute exacerbation. Again, her overall condition appears to be worsening. I appreciate Dr. Childers's input with regards to this. 3. Pneumonia. Again, at this time appears to be worsening. I appreciate the input from Pulmonology and will continue to monitor their management. 4. Generalized deconditioning. Again, I believe the patient will have very much difficulty with rehabilitation and is likely not to benefit significantly from it at this time. I will discuss with daughter tomorrow. 5. Protein-calorie malnutrition. Having difficulty with oral intake given her respiratory status and I do believe she has a high aspiration risk at this time. [facility] [address] [place] [address] CONSULTATION Name: TALON BLAKE Room #: 355-P [facility]#: [id number] Admission: 03/16/17 Attend Phys: Justin Epps MD Discharge: 03/23/17 Date of : 49 Report #: [id number] Thank you very much for this consultation. We will follow up again tomorrow morning. <ELECTRONICALLY SIGNED> By: Clay Cali DO 04/02/17 1336 [id number] Clay Cali DO /nt
[2017-03-16 08:01] LABS: BASOPHILS 0.3 % (0.0-2.0); EOSINOPHILS 1.3 % (0.0-3.0); HEMATOCRIT 24.4 % (37.0-47.0); HEMOGLOBIN 8.1 gm/dL (12.0-15.0); LYMPHOCYTES 8.7 % (24.0-44.0); MCH 28.6 pg (26.0-34.0); MCHC 33.1 g/dL (28.0-37.0); MCV 86.6 fL (80.0-100.0); PLATELET COUNT 213 thou/uL (150-400); POLYS 80.7 % (36.0-66.0); RBC 2.82 mil/uL (4.20-5.00); RDW 14.3 % (10.5-14.5); WBC 8.6 thou/uL (4.0-11.0)
[2017-03-16 08:09] LABS: BUN 36 mg/dL (7-18); CALCIUM 8.2 mg/dL (8.5-10.1); CHLORIDE 102 mmol/L (98-107); CREATININE 0.4 mg/dL (0.6-1.0); GLUCOSE 113 mg/dL (74-106); MAGNESIUM 2.2 mg/dL (1.8-2.4); POTASSIUM 3.9 mmol/L (3.5-5.1); SODIUM 144 mmol/L (136-145)
[2017-03-16 08:15] LABS: CO2 > 45 mmol/L (21-32)
[2017-03-17] VITALS (9 sets, daily range): BP systolic 122–165; BP diastolic 67–116
[2017-03-17 06:12] LABS: HEMATOCRIT 26.6 % (37.0-47.0); HEMOGLOBIN 8.4 gm/dL (12.0-15.0); MCH 28.2 pg (26.0-34.0); MCHC 31.5 g/dL (28.0-37.0); MCV 89.4 fL (80.0-100.0); RBC 2.97 mil/uL (4.20-5.00); RDW 15.1 % (10.5-14.5); WBC 12.8 thou/uL (4.0-11.0)
[2017-03-17 06:24] LABS: CALCIUM 8.5 mg/dL (8.5-10.1); CREATININE 0.4 mg/dL (0.6-1.0)
[2017-03-18 00:07] VITALS: BP 107/61
[2017-03-18 04:22] VITALS: BP 149/75
[2017-03-18 04:55] LABS: HEMATOCRIT 25.6 % (37.0-47.0); HEMOGLOBIN 8.3 gm/dL (12.0-15.0); MCH 28.6 pg (26.0-34.0); MCHC 32.5 g/dL (28.0-37.0); RBC 2.91 mil/uL (4.20-5.00); RDW 15.4 % (10.5-14.5); WBC 11.7 thou/uL (4.0-11.0)
[2017-03-18 07:33] VITALS: BP 131/68
[2017-03-18 17:27] VITALS: BP 141/86
[2017-03-18 19:00] VITALS: BP 133/79
[2017-03-19 03:02] VITALS: BP 139/102
[2017-03-19 05:30] VITALS: BP 135/77
[2017-03-19 08:23] VITALS: BP 133/70
[2017-03-19 09:47] VITALS: BP 133/70
[2017-03-19 13:24] LABS: PROTIME 10.5 Seconds (9.3-11.4)
[2017-03-19 17:39] VITALS: BP 163/93
[2017-03-19 19:20] VITALS: BP 163/101
[2017-03-20 03:55] VITALS: BP 132/95
[2017-03-20 06:42] LABS: HEMATOCRIT 27.6 % (37.0-47.0); HEMOGLOBIN 8.9 gm/dL (12.0-15.0); MCH 28.4 pg (26.0-34.0); MCHC 32.1 g/dL (28.0-37.0); MCV 88.4 fL (80.0-100.0); RBC 3.12 mil/uL (4.20-5.00); RDW 16.2 % (10.5-14.5); WBC 11.2 thou/uL (4.0-11.0)
[2017-03-20 06:52] LABS: ANION GAP < 0 mmol/L (7-16); BUN 45 mg/dL (7-18); CALCIUM 8.6 mg/dL (8.5-10.1); CHLORIDE 103 mmol/L (98-107); CO2 43 mmol/L (21-32); CREATININE 0.4 mg/dL (0.6-1.0); GLUCOSE 128 mg/dL (74-106); POTASSIUM 4.5 mmol/L (3.5-5.1); SODIUM 144 mmol/L (136-145)
[2017-03-20 08:40] VITALS: BP 130/81
[2017-03-20 12:06] VITALS: BP 164/92
[2017-03-20 15:34] VITALS: BP 148/86
[2017-03-20 20:00] VITALS: BP 134/67
[2017-03-21 04:00] VITALS: BP 136/84
[2017-03-21 07:23] VITALS: BP 128/67
[2017-03-21 15:08] VITALS: BP 133/86
[2017-03-21 19:37] VITALS: BP 147/71
[2017-03-22 03:24] VITALS: BP 117/72
[2017-03-22 08:45] VITALS: BP 133/67
[2017-03-22 15:39] VITALS: BP 134/69
[2017-03-22 19:40] VITALS: BP 142/83
[2017-03-23 08:20] VITALS: BP 130/68
[2017-03-23] MEDS ORDERED: ASPIRIN325 PER TUBE (11:56)
[2017-03-23 14:05] VITALS: BP 130/68
== END 2017-03-23 14:38 | disposition hospice, home (50) | DRG 871 ==
LOC: ICU 05:14 → 3W 03-17 02:00
PROVIDERS: Hospitalist; Internal Medicine Pulmonary Disease; Nurse Practitioner
PROC: 0BJ08ZZ Inspection of Tracheobronchial Tree, Via Natural or Artificial Opening Endoscopic (ICD-10-PCS; principal; 2017-03-16)
PROC: 5A09357 Assistance with Respiratory Ventilation, Less than 24 Consecutive Hours, Continuous Positive Airway Pressure (ICD-10-PCS; 2017-03-19)
PROC: 5A09357 Assistance with Respiratory Ventilation, Less than 24 Consecutive Hours, Continuous Positive Airway Pressure (ICD-10-PCS; 2017-03-20)
PROC: 5A09357 Assistance with Respiratory Ventilation, Less than 24 Consecutive Hours, Continuous Positive Airway Pressure (ICD-10-PCS; 2017-03-21)
DX: A41.9 Sepsis, unspecified organism (principal); J18.9 Pneumonia, unspecified organism; I21.4 Non-ST elevation (NSTEMI) myocardial infarction; J96.21 Acute and chronic respiratory failure with hypoxia; J96.22 Acute and chronic respiratory failure with hypercapnia; J44.1 Chronic obstructive pulmonary disease with (acute) exacerbation; E46 Unspecified protein-calorie malnutrition; J44.0 Chronic obstructive pulmonary disease with (acute) lower respiratory infection; Z66 Do not resuscitate; J09.X2 Influenza due to identified novel influenza A virus with other respiratory manifestations; I48.0 Paroxysmal atrial fibrillation; Z90.710 Acquired absence of both cervix and uterus; Z68.22 Body mass index [BMI] 22.0-22.9, adult; Z79.899 Other long term (current) drug therapy; Z87.891 Personal history of nicotine dependence; Z79.82 Long term (current) use of aspirin
CPT/HCPCS: 10203; 10879